=== PATIENT | female | born 1990 | race Two or more races ===

== ENCOUNTER 2024-12-22 06:45 | Day surgery (SDC) | payer BC, SELFPAY ==
[2024-12-21 08:21] VITALS: BMI 32.8
[2024-12-21 10:13] LABS: Basophils # (Auto) 0.0 Thou/mm3 (0.0-0.2); Basophils % (Auto) 1 % (0-2.5); Eosinophils # (Auto) 0.1 Thou/mm3 (0.0-0.5); Eosinophils % (Auto) 1 % (0-10); Hematocrit 38.1 % (36.0-46.0); Hemoglobin 12.8 g/dL (12.0-16.0); Immature Granulocytes Auto 0.01 Thou/mm3 (0.00-0.00); Lymphocytes # (Auto) 2.0 Thou/mm3 (1.0-4.8); Lymphocytes % (Auto) 31 % (10-50); Mean Corpuscular HGB Conc 33.6 g/dl (31.0-37.0); Mean Corpuscular Hemoglobin 29.4 pg (25.0-35.0); Mean Corpuscular Volume 88 fL (80-100); Monocytes # (Auto) 0.5 Thou/mm3 (0.0-0.8); Monocytes % (Auto) 8 % (0-12); Neutrophils # (Auto) 3.8 Thou/mm3 (1.8-7.7); Neutrophils % (Auto) 60 % (37-80); Nucleated Red Blood Cell # 0.00 Thou/mm3 (0.00-0.00); Nucleated Red Blood Cell % 0 /100 WBC (0); Platelet Count 273 Thou/mm3 (140-440); RDW Standard Deviation 39.3 fL (36.4-46.3); Red Blood Count 4.35 Miln/mm3 (4.00-5.20); White Blood Count 6.5 Thou/mm3 (3.6-11.0)
[2024-12-21 10:21] LABS: INR 1.0 (0.9-1.3); Partial Thromboplastin Time 26.8 Seconds (22.0-36.0); Prothrombin Time 10.9 Seconds (9.0-12.2)
[2024-12-21 10:34] LABS: Alanine Aminotransferase 24 U/L (10-49); Albumin, Serum 4.7 gm/dL (3.5-5.0); Albumin/Globulin Ratio 2.0 (1.2-2.2); Alkaline Phosphatase 65 U/L (46-116); Anion Gap 8 (7-16); Aspartate Amino Transferase 25 U/L (0-34); BUN/Creatinine Ratio 10 Ratio (12-20); Bilirubin,Total 0.8 mg/dL (0.3-1.2); Blood Urea Nitrogen 7 mg/dL (9-23); Calcium 9.7 mg/dL (8.3-10.6); Calcium (Corrected) 9.7 mg/dL (8.5-10.1); Carbon Dioxide 26.2 mMol/L (20.0-31.0); Chloride 107 mMol/L (98-107); Creatinine (Component) 0.7 mg/dL (0.6-1.3); Estimated Creatinine Clearance 112.9 mL/min (>60); Globulin 2.3 gm/dL (2.3-3.5); Glucose 91 mg/dL (74-106); Osmolality,Calculated 279 (275-295); Potassium 3.7 mMol/L (3.4-5.1); Sodium 141 mMol/L (136-145); Total Protein 7.0 gm/dL (5.7-8.2); eGFR > 60 See Note
[2024-12-21 10:40] LABS: HCG,Qualitative Serum Negative
--- NOTE | 2024-12-21 14:12 | SUR.PREOP ---
Pt notified to come in at 0700 tomorrow for surgery.
[2024-12-22] VITALS (11 sets, daily range): BP systolic 104–124; BP diastolic 59–81; PULSE 50–82; RESP 13–19; TEMP 36.1–36.6; O2SAT 95–100; BMI 32.8
--- NOTE | 2024-12-22 10:54 | ESOP_ITS ---
Date of Procedure 12/22/24 Pre Op Diagnosis Symptomatic cholelithiasis Post Op Diagnosis Same Procedure Laparoscopic cholecystectomy Findings Patient was found to have a noninflamed gallbladder with multiple gallstones Procedure Description after endotracheal anesthesia was given the patient was placed in supine position and the abdomen was prepped with chloroprep solution and draped in a sterile manner. After time out was performed I injected a few cc of of half percent Marcaine with epinephrine below the umbilicus and I made an incision for about 3 cm in length. The fascia was cleaned and Veress needle was inserted to create a pneumoperitoneum up to 15 mmHg. Then introduced a 12 mm trocar and a 10 mm camera through the fascia and I inspected the intra-abdominal organs as well as the gallbladder and the liver. During introduction I felt some adhesions at the umbilical site but it was cleared to make sure there is no injury to the bowel by looking through the 5 mm trocar from the epigastric region. Another 5 mm trocar was inserted in the epigastric region under direct vision after injecting some local anesthesia. At this time the patient was kept in reverse Trendelenburg position with the left lateral tilt. The third 5 mm trocar was inserted over the mid axillary line under direct vision and a Travis and Geelvis grasper was used to hold the fundus of the gallbladder. The retraction was carried out by the early childhood teacher assistant moving the fundus of the gallbladder towards the right shoulder of the patient to create enough traction. I placed a another 5 mm trocar in the midaxillary line just lateral to the rectus muscle under direct vision. I used a fenestrated grasper to retract the neck of the gallbladder laterally towards the patient's right hip. The Calot's triangle was exposed and I achieved the critical view of safety as follows: I dissected out the fatty tissue from the hepatocystic triangle and cleared this area. I also dissected inferior and posterior to the gallbladder to identify the cystic duct and the gallbladder wall. Then superiorly I dissected along the cystic plate up to lower one third third of the gallbladder to lift the gallbladder from the liver. At this time I confirmed that only 2 structures entering the gallbladder were cystic artery and the cystic duct. The common duct was seen distally but no dissection was carried out around the duct. I did not see any need for operative cholangiogram in this patient. The cystic duct was clipped doubly and then divided and cystic artery was similarly dealt with. Then the gallbladder was removed from the liver bed using Harmonic maria e to control the small blood vessels as the dissection proceeded. Then the gallbladder was from the liver bed completely and delivered through the umbilical port using an Endopouch. The liver bed was coagulated with cautery to obtain satisfactory hemostasis. The trocars were pulled out from the abdominal cavity and the fascia at the umbilical incision was closed with interrupted 0 Ethibond. Subcutaneous tissues was closed with 3-0 chromic and injected a few cc of half percent Marcaine with epinephrine and the skin was closed with interrupted 4-0 nylon stitches at all the trocar sites. Dressing was applied with 2 x 2 and Tegaderm. Patient tolerated the procedure well and returned to recovery room in stable condition. Anesthesia GETA Pathology / specimen Other (Gallbladder and the stones) IVF Infused 1,000 Estimated Blood Loss 40 Condition Stable Disposition PACU Surgeon Papa Phma MD Surgical Staff Operation Date: 12/22/24 09:00 Case Staff Anesthesiologist: Jaspreet Gagnon RN First Assistant: Karina Pang
[2024-12-22] MEDS: fentaNYL CIT INJ 50 mCg/ML AMP 2ML 25 MCG IVP (11:00)
[2024-12-22] MEDS: ONDANSETRON INJ 2 MG/ML INJ 2 ML 4 MG IVP (11:20)
--- NOTE | 2024-12-22 11:22 | SUR.PHASEI ---
1033: Pt received in [facility] via gurney. Report from Ankita LOVING and Jonathon PORTER. Pt obtunded. Oral airway in place. Resp even unlabored. VS stable. Dressings to abdomen x4 dry, clean, intact. 1035: Oral airway dc'd. Resp even, unlabored. 1100: Pt awake with c/o pain to abdomen. Rates pain level 6/10. VS stable. Resp even, unlabored. Pain medication given per order.
--- NOTE | 2024-12-22 11:41 | SUR.PHASEII ---
1120: Pt stated pain level coming down and is more tolerable, but is getting nauseated. Zofran given per order. 1140: Pt states nausea subsiding. VS stable. Dressing remains dry, clean, intact. Pain level remains tolerable.
--- NOTE | 2024-12-22 14:23 | SUR.PHASEII ---
1200: Pt stated nausea continues to subside and she is feeling better. States pain level remains tolerable. Is tolerating ice chips with no difficulty swallowing and no n/v. Partner at bedside. 1215: Pt fully awake, oriented x3. VS stable. Dressings dry, clean, intact. Has mild pain with movement. Pt dressed and assisted to restroom. Ambulation steady. Pt and partner stated understanding of discharge instructions. Pt discharged from [facility] in stable condition.
== END 2024-12-22 12:15 | disposition home or self-care (01) ==
PROVIDERS: Absent Provider Surgery; PCP Student in an Organized Health Care Education/Training Program; Referring Provider Surgery; Visit Provider Surgery
PROC: 0FT44ZZ Resection of Gallbladder, Percutaneous Endoscopic Approach (ICD-10-PCS; CPT 47562; principal; 2024-12-22 09:00)
DX: K80.10 Calculus of gallbladder with chronic cholecystitis without obstruction (principal); F41.8 Other specified anxiety disorders; K21.9 Gastro-esophageal reflux disease without esophagitis; Z79.899 Other long term (current) drug therapy
CPT/HCPCS: 47562; 36415; 80053; 84703; 85025; 85610; 85730; A4217; A4649; J0131; J1100; J1885; J2250; J2371; J2405; J2704; J3010; J3490; J1805